=== PATIENT | male | born 1960 | race Caucasian/White ===

== ENCOUNTER 2017-06-26 23:21 | Emergency (ER) | payer OTHER ==
[2017-06-26 23:53] LABS: Bilirubin Negative (Negative); Blood, Urine Negative (Negative); Clarity Clear (Clear); Glucose, Urine (Dipstick) Negative (Negative); Leukocyte Negative (Negative); Nitrite Negative (Negative); Protein, Urine (Dipstick) Negative (Neg-Trace); Urobilinogen 0.2 mg/dL (0.2-1.0)
== END 2017-06-27 00:16 | disposition home or self-care (01) ==
LOC: SCSER 23:21
DX: G20 Parkinson's disease (principal); R30.0 Dysuria; Z79.899 Other long term (current) drug therapy
CPT/HCPCS: 81003; 87086; 99284

== ENCOUNTER 2017-07-09 15:08 | Outpatient (CLI) | payer OTHER ==
--- NOTE | 2017-07-09 16:44 | MRI ---
BRAIN MRI NONCONTRAST 07/09/17 INDICATION: Hallucinations, history of Parkinson's disease. No prior imaging comparison available. FINDINGS: Ventricular system is normal in size. There is no acute territorial infarction or midline shift. No i ntracranial hemorrhage. Minimal areas of punctate signal alteration of the bilateral cerebral white m atter are present of doubtful clinical significance. Imaged skull base flow voids are patent. Retenti on cyst formation seen within the left maxillary sinus. There is mild mucosal thickening of the ethmo id sinus. IMPRESSION: 1. No acute intracranial abnormalities. 2. Minimal nonspecific white matter signal abnormality, bilaterally, which could be on the basis of gliosis from chronic ischemic disease. POS: [facility]
== END 2017-07-09 15:09 | disposition home or self-care (01) ==
LOC: TBSIIMAG 15:08
PROVIDERS: ATTEND Psychiatry & Neurology Neurology
DX: R44.3 Hallucinations, unspecified (principal); G93.89 Other specified disorders of brain
CPT/HCPCS: 70551

== ENCOUNTER 2017-07-29 09:47 | Outpatient (CLI) | payer OTHER ==
--- NOTE | 2017-07-29 16:13 | NM ---
NUCLEAR MEDICINE BRAIN IMAGING: Date: 07/29/17 CLINICAL HISTORY: Tremor, unspecified. FINDINGS: There is abnormal decreased uptake of the striatum bilaterally. IMPRESSION: Abnormal exam. Diminished uptake involving the striatum bilaterally. POS: [facility]
== END 2017-07-29 09:48 | disposition home or self-care (01) ==
LOC: NM 09:47
PROVIDERS: ATTEND Psychiatry & Neurology Neurology
DX: R25.1 Tremor, unspecified (principal); R94.02 Abnormal brain scan
CPT/HCPCS: 78607; A9584

== ENCOUNTER 2023-12-04 22:03 | Inpatient (IN) | payer OTHER ==
[2023-12-04 23:51] VITALS: BMI 20.9
[2023-12-04] MEDS ORDERED: Ondansetron ODT 4 MG TAB PO PRN (23:55)
[2023-12-04] MEDS ORDERED: Ondansetron PF 4 MG/2 ML Vial IVP PRN (23:55)
[2023-12-04] MEDS ORDERED: Acetaminophen 650 MG Suppository PR PRN (23:55)
[2023-12-05] MEDS: FLU (Fluad Triv) TS24-25 (65UP)/MF59C/PF 45 MCG/0.5 ML Syringe IM ONE (00:33)
[2023-12-05 00:49] LABS: #Basophils 0.03 10x3/uL (0.0-0.2); %Basophils 0.3 % (0.0-1.0); %Eosinophils 2.1 % (0.0-10.0); %Lymphocytes 14.7 % (21.0-51.0); %Monocytes 9.1 % (0.0-10.0); %Neutrophils 73.6 % (42.0-75.0); Hematocrit 38.9 % (42.0-52.0); Mean Corpuscular HGB CONC 30.8 g/dL (32.0-36.0); Mean Corpuscular Hemoglobin 29.3 pg (27.0-31.0); Mean Corpuscular Volume 95.1 fL (78.0-98.0); Platelet Count 163 10x3/uL (130-400); RBC Distribution Width 11.9 % (11.5-14.5); Red Blood Cell (RBC) Count 4.09 mill/uL (4.70-6.10)
[2023-12-05 01:09] LABS: ALT (SGPT) Less than 5 U/L (8-55); AST (SGOT) 12 U/L (5-34); Albumin 3.6 g/dL (3.4-4.8); Alkaline Phosphatase 84 U/L (40-110); Anion Gap 12 mmol/L (10-20); BUN (Urea Nitrogen) 10 mg/dL (8.4-25.7); Bilirubin, Total 0.9 mg/dL (0.2-1.2); Calc. Creatinine Clearance 84 mL/min (70-130); Calcium 8.8 mg/dL (7.8-10.44); Carbon Dioxide 25 mmol/L (23-31); Chloride 106 mmol/L (98-107); Estimated GFR 99; Globulin 2.8 g/dL (2.4-3.5); Glucose 102 mg/dL (80-115); Potassium 3.6 mmol/L (3.5-5.1); Protein, Total 6.4 g/dL (5.8-8.1); Sodium 139 mmol/L (136-145)
[2023-12-05] MEDS: Acetaminophen 325 MG TAB PO SCH (01:10)
[2023-12-05] MEDS: QUEtiapine 25 MG TAB PO SCH ×2 (01:23→21:36)
[2023-12-05] MEDS: Famotidine 20 MG TAB PO SCH (09:51)
[2023-12-05] MEDS: Tamsulosin HCl 0.4 MG CAP PO SCH (09:51)
[2023-12-05] MEDS: Donepezil HCl 5 MG TAB PO SCH (09:51)
[2023-12-05] MEDS: Famotidine/PF 20 mg/2ml Vial SLOW IVP SCH (11:51)
[2023-12-05] MEDS: clonazePAM 0.5 MG TAB PO PRN (17:02)
[2023-12-05] MEDS: LEVODOPA PER TUBE SCH (19:16)
[2023-12-05] MEDS: CARBIDOPA PER TUBE SCH (19:16)
[2023-12-05] MEDS ORDERED: Vancomycin (BATCH) 1.5 GM in Premix 1 BAG IVPB SCH (19:30)
[2023-12-05 20:44] LABS: Vancomycin, Trough 3.5 ug/mL
[2023-12-05] MEDS: Cefepime 2 GM in Sodium Chloride 0.9% 100 ML IVPB SCH (21:36)
[2023-12-05] MEDS: Simvastatin 5 MG TAB PO SCH (21:36)
[2023-12-05] MEDS: Escitalopram Oxalate 10 mg Tablet PO SCH (21:36)
[2023-12-05] MEDS: metroNIDAZOLE 500 MG in Premix 1 BAG IVPB SCH (21:37)
[2023-12-05] MEDS: Vancomycin (BATCH) 1.5 GM in Premix 1 BAG IVPB SCH (22:35)
[2023-12-06 06:23] LABS: #Basophils 0.06 10x3/uL (0.0-0.2); %Basophils 0.8 % (0.0-1.0); %Eosinophils 2.9 % (0.0-10.0); %Lymphocytes 14.3 % (21.0-51.0); %Monocytes 7.9 % (0.0-10.0); %Neutrophils 73.8 % (42.0-75.0); Hematocrit 41.9 % (42.0-52.0); Hemoglobin 13.1 g/dL (14.0-18.0); Mean Corpuscular HGB CONC 31.3 g/dL (32.0-36.0); Mean Corpuscular Hemoglobin 29.2 pg (27.0-31.0); Mean Corpuscular Volume 93.5 fL (78.0-98.0); Mean Platelet Volume 9.1 fL (7.4-10.4); Platelet Count 172 10x3/uL (130-400); Red Blood Cell (RBC) Count 4.48 mill/uL (4.70-6.10)
[2023-12-06 06:35] LABS: Hemoglobin A1c 5.3 % (4.0-6.0)
[2023-12-06 06:50] LABS: Anion Gap 12 mmol/L (10-20); BUN (Urea Nitrogen) 11 mg/dL (8.4-25.7); Calc. Creatinine Clearance 83 mL/min (70-130); Calcium 9.1 mg/dL (7.8-10.44); Carbon Dioxide 24 mmol/L (23-31); Chloride 106 mmol/L (98-107); Estimated GFR 99; Glucose 99 mg/dL (80-115); Potassium 3.9 mmol/L (3.5-5.1); Sodium 138 mmol/L (136-145); Vancomycin, Random 15.9 ug/mL (See Comment)
[2023-12-06] MEDS ORDERED: Vancomycin 1 GM in Sodium Chloride 0.9% 250 ML 250 ML IVPB SCH (09:00)
[2023-12-06] MEDS: QUEtiapine 25 MG TAB PO SCH (09:07)
[2023-12-06] MEDS: Vancomycin 1 GM in Premix 1 BAG IVPB SCH (09:08)
[2023-12-06] MEDS: Enoxaparin 40 MG (0.4 mL) SYRINGE SC SCH (09:08)
[2023-12-06] MEDS ORDERED: Bupivacaine PF 0.5% 30 ML VIAL ONE (09:34)
[2023-12-06] MEDS ORDERED: fentaNYL PF 100 MCG/2 ML SYRINGE ONE (10:24)
[2023-12-06] MEDS ORDERED: Lidocaine 2% 6 ML (Jelly) SYR ONE (10:24)
[2023-12-06] MEDS ORDERED: PROPOFOL 20 ML ONE (10:24)
[2023-12-06] MEDS ORDERED: Midazolam HCl 2 mg/2 ml Vial ONE (10:24)
[2023-12-06] MEDS ORDERED: Lidocaine 1% PF 5 ML VIAL ONE (10:25)
[2023-12-06] MEDS ORDERED: Ondansetron PF 4 MG/2 ML Vial ONE (10:25)
[2023-12-06] MEDS ORDERED: Vancomycin 1 GM/200 ML (FROZEN) BAG ONE (10:47)
[2023-12-06] MEDS: traMADol HCl 50 MG TAB PO PRN (23:10)
[2023-12-07 04:32] LABS: #Basophils 0.04 10x3/uL (0.0-0.2); %Basophils 0.4 % (0.0-1.0); %Eosinophils 1.9 % (0.0-10.0); %Lymphocytes 12.1 % (21.0-51.0); %Monocytes 8.1 % (0.0-10.0); %Neutrophils 77.2 % (42.0-75.0); Hematocrit 38.6 % (42.0-52.0); Hemoglobin 12.4 g/dL (14.0-18.0); Mean Corpuscular HGB CONC 32.1 g/dL (32.0-36.0); Mean Corpuscular Hemoglobin 29.3 pg (27.0-31.0); Mean Corpuscular Volume 91.3 fL (78.0-98.0); Mean Platelet Volume 9.3 fL (7.4-10.4); Platelet Count 182 10x3/uL (130-400); Red Blood Cell (RBC) Count 4.23 mill/uL (4.70-6.10)
[2023-12-07 04:47] LABS: Anion Gap 12 mmol/L (10-20); BUN (Urea Nitrogen) 12 mg/dL (8.4-25.7); Calc. Creatinine Clearance 84 mL/min (70-130); Calcium 9.1 mg/dL (7.8-10.44); Carbon Dioxide 24 mmol/L (23-31); Chloride 108 mmol/L (98-107); Estimated GFR 99; Glucose 95 mg/dL (80-115); Potassium 3.6 mmol/L (3.5-5.1); Sodium 140 mmol/L (136-145)
[2023-12-08 05:14] LABS: #Basophils 0.04 10x3/uL (0.0-0.2); %Basophils 0.6 % (0.0-1.0); %Eosinophils 2.6 % (0.0-10.0); %Monocytes 7.4 % (0.0-10.0); %Neutrophils 78.1 % (42.0-75.0); Hematocrit 41.3 % (42.0-52.0); Mean Corpuscular HGB CONC 31.5 g/dL (32.0-36.0); Mean Corpuscular Volume 92.2 fL (78.0-98.0); Mean Platelet Volume 9.4 fL (7.4-10.4); Platelet Count 208 10x3/uL (130-400); RBC Distribution Width 11.9 % (11.5-14.5); Red Blood Cell (RBC) Count 4.48 mill/uL (4.70-6.10)
[2023-12-08 05:15] LABS: Anion Gap 12 mmol/L (10-20); BUN (Urea Nitrogen) 11 mg/dL (8.4-25.7); Calc. Creatinine Clearance 81 mL/min (70-130); Calcium 8.9 mg/dL (7.8-10.44); Carbon Dioxide 24 mmol/L (23-31); Chloride 108 mmol/L (98-107); Estimated GFR 98; Glucose 121 mg/dL (80-115); Potassium 3.6 mmol/L (3.5-5.1); Sodium 140 mmol/L (136-145)
[2023-12-08 05:20] LABS: Vancomycin, Random 19.8 ug/mL (See Comment)
[2023-12-08] MEDS: Vancomycin 1 GM in Premix 1 BAG IVPB SCH (12:58)
[2023-12-08] MEDS: MELATONIN 10 MG PO SCH (20:41)
[2023-12-08] MEDS: MAGNESIUM CITRATE 100 MG PO SCH (20:41)
[2023-12-08] MEDS: [UNRECOGNIZED DRUG - OTHER] PO SCH (20:41)
[2023-12-09 07:31] LABS: #Basophils 0.06 10x3/uL (0.0-0.2); %Basophils 0.9 % (0.0-1.0); %Eosinophils 3.8 % (0.0-10.0); %Lymphocytes 16.9 % (21.0-51.0); %Monocytes 8.7 % (0.0-10.0); %Neutrophils 69.2 % (42.0-75.0); Hematocrit 42.4 % (42.0-52.0); Hemoglobin 13.1 g/dL (14.0-18.0); Mean Corpuscular HGB CONC 30.9 g/dL (32.0-36.0); Platelet Count 199 10x3/uL (130-400); RBC Distribution Width 11.9 % (11.5-14.5); Red Blood Cell (RBC) Count 4.51 mill/uL (4.70-6.10)
[2023-12-09 07:49] LABS: Anion Gap 10 mmol/L (10-20); BUN (Urea Nitrogen) 8 mg/dL (8.4-25.7); Calc. Creatinine Clearance 83 mL/min (70-130); Calcium 9.3 mg/dL (7.8-10.44); Carbon Dioxide 29 mmol/L (23-31); Chloride 105 mmol/L (98-107); Estimated GFR 99; Glucose 105 mg/dL (80-115); Potassium 3.7 mmol/L (3.5-5.1); Sodium 140 mmol/L (136-145)
[2023-12-10 04:59] LABS: #Basophils 0.06 10x3/uL (0.0-0.2); %Basophils 0.8 % (0.0-1.0); %Lymphocytes 15.4 % (21.0-51.0); %Monocytes 8.6 % (0.0-10.0); %Neutrophils 71.7 % (42.0-75.0); Hematocrit 38.1 % (42.0-52.0); Hemoglobin 12.3 g/dL (14.0-18.0); Mean Corpuscular HGB CONC 32.3 g/dL (32.0-36.0); Mean Corpuscular Hemoglobin 29.3 pg (27.0-31.0); Mean Corpuscular Volume 90.7 fL (78.0-98.0); Mean Platelet Volume 9.1 fL (7.4-10.4); Platelet Count 176 10x3/uL (130-400)
[2023-12-10 05:14] LABS: Anion Gap 11 mmol/L (10-20); BUN (Urea Nitrogen) 9 mg/dL (8.4-25.7); Calc. Creatinine Clearance 80 mL/min (70-130); Calcium 8.8 mg/dL (7.8-10.44); Carbon Dioxide 27 mmol/L (23-31); Chloride 104 mmol/L (98-107); Estimated GFR 98; Glucose 87 mg/dL (80-115); Sodium 138 mmol/L (136-145)
[2023-12-10] MEDS: Cephalexin 250 MG CAP PO SCH (12:31)
[2023-12-10] MEDS: Ciprofloxacin 500 MG TAB PO SCH (20:53)
[2023-12-11 05:07] LABS: #Basophils 0.05 10x3/uL (0.0-0.2); %Basophils 0.8 % (0.0-1.0); %Eosinophils 2.9 % (0.0-10.0); %Lymphocytes 18.7 % (21.0-51.0); %Monocytes 9.5 % (0.0-10.0); %Neutrophils 67.6 % (42.0-75.0); Hematocrit 41.4 % (42.0-52.0); Hemoglobin 13.4 g/dL (14.0-18.0); Mean Corpuscular HGB CONC 32.4 g/dL (32.0-36.0); Mean Corpuscular Hemoglobin 29.2 pg (27.0-31.0); Mean Corpuscular Volume 90.2 fL (78.0-98.0); Mean Platelet Volume 9.2 fL (7.4-10.4); Platelet Count 188 10x3/uL (130-400); RBC Distribution Width 12.1 % (11.5-14.5); Red Blood Cell (RBC) Count 4.59 mill/uL (4.70-6.10)
[2023-12-11 05:34] LABS: Anion Gap 11 mmol/L (10-20); BUN (Urea Nitrogen) 11 mg/dL (8.4-25.7); Calc. Creatinine Clearance 82 mL/min (70-130); Calcium 9.3 mg/dL (7.8-10.44); Carbon Dioxide 27 mmol/L (23-31); Chloride 105 mmol/L (98-107); Estimated GFR 99; Glucose 90 mg/dL (80-115); Potassium 4.1 mmol/L (3.5-5.1); Sodium 139 mmol/L (136-145)
[2023-12-11 08:30] VITALS: TEMP 97.7
[2023-12-11 10:32] VITALS: BMI 20.9
[2023-12-11 14:09] VITALS: BP 110/73
== END 2023-12-11 14:13 | disposition home health service (06) | DRG 504 ==
LOC: T4-B 23:08
PROVIDERS: ADMIT Student in an Organized Health Care Education/Training Program; ATTEND Internal Medicine
PROC: 0Y6R0Z0 Detachment at Right 2nd Toe, Complete, Open Approach (ICD-10-PCS; principal; 2023-12-06)
DX: M86.171 Other acute osteomyelitis, right ankle and foot (principal); I96 Gangrene, not elsewhere classified; L03.115 Cellulitis of right lower limb; R78.81 Bacteremia; G20.C Parkinsonism, unspecified; Z88.0 Allergy status to penicillin; Z79.899 Other long term (current) drug therapy; Z98.890 Other specified postprocedural states; E78.5 Hyperlipidemia, unspecified; N40.0 Benign prostatic hyperplasia without lower urinary tract symptoms
CPT/HCPCS: 36415; 80048; 80053; 80202; 83036; 83605; 84145; 85025; 85610; 85730; 86140; 86141; 87040; 87070; 87149; 87205; 88305; 88311; 93005; 93010; 96365; 96375; 97139; J0665; J0692; J1650; J2250; J2272; J2405; J2704; J3370; J3370-JW; J3490